=== PATIENT | male | born 1980 | race Caucasian/White ===

== ENCOUNTER 2019-04-14 16:55 | Emergency (ER) | payer MEDICARE ==
--- NOTE | 2019-04-14 17:57 | UC ---
Skin Complaint HPI - HPI Summary HPI Summary: 38 y/o male presents to the urgent care c/o tick bite 2 weeks ago and now he has developed SALAMANCA, joint pains, fatigue and general malaise w/ chills at times for the past 3 days. Pt reports he has had tick bite is the past, but has never gotten the prophylactic treatment, but never felt like this. Pt has not seen any rash, but he is concerned about Lyme disease and requests Serology and full treatment. He has Hx of Migraine SALAMANCA. Pt denies fever, but has felt chills, denies SOB, chest pain, abdominal pain, N/V/D, dizziness, visual changes, - History of Current Complaint Chief Complaint: UCGeneralIllness Time Seen by Provider: 04/14/19 17:56 Stated Complaint: TICK BITE Hx Obtained From: Patient Onset/Duration: Sudden Onset, Lasting Weeks - 2 weeks ago tick bite, Worse Since - 3 days w/ joint pain, SALAMANCA, chills fatigue Skin Exposure Onset/Duration: Weeks Ago - 2 weeks ago Timing: Constant Onset Severity: Mild Current Severity: Moderate Pain Intensity: 7 Pain Scale Used: 0-10 Numeric Location: Generalized - joint pains, fatigue Aggravating Factor(s): Nothing Alleviating Factor(s): OTC Meds Associated Signs & Symptoms: Positive: Weakness, Chills Related History: Possible Reaction to: Insect - Allergy/Home Medications Allergies/Adverse Reactions: Allergies Allergy/AdvReac Type Severity Reaction Status Date / Time No Known Allergies Allergy Verified 04/14/19 17:38 PMH/Surg Hx/FS Hx/Imm Hx Previously Healthy: Yes - Pt denies PMHX - Surgical History Surgical History: Yes Surgery Procedure, Year, and Place: arm fracture repair - Family History Known Family History: Positive: Hypertension Negative: Blood Disorder - Social History Occupation: Employed Full-time Lives: With Family Alcohol Use: Occasionally Substance Use Type: Marijuana Smoking Status (MU): Never Smoked Tobacco - Immunization History Most Recent Influenza Vaccination: Unknown Most Recent Tetanus Shot: 08/08/16 Review of Systems All Other Systems Reviewed And Are Negative: Yes Constitutional: Positive: Chills, Fatigue Skin: Positive: Negative Eyes: Positive: Negative ENT: Positive: Negative Respiratory: Positive: Negative Cardiovascular: Positive: Negative Gastrointestinal: Positive: Negative Genitourinary: Positive: Negative Motor: Positive: Negative Neurovascular: Positive: Negative Musculoskeletal: Positive: Arthralgia Neurological: Positive: Headache Psychological: Positive: Negative Is Patient Immunocompromised?: No Physical Exam - Summary Physical Exam Summary: Vital Signs Reviewed: Yes General: well developed, well nourished male sitting in the examining table w/o any apparent distress. Eyes: Positive: Conjunctiva Clear - PERRLA, EOMI ENT: Positive: Normal ENT inspection, Hearing grossly normal, Pharynx normal, TMs normal Neck: Positive: Supple, Nontender, No Lymphadenopathy Respiratory: Positive: Chest nontender, Lungs clear, Normal breath sounds Cardiovascular: Positive: RRR, No Murmur, Pulses Normal Abdomen Description: Positive: Nontender, No Organomegaly, Soft. Negative: CVA Tenderness (R), CVA Tenderness (L) Bowel Sounds: Positive: Present Musculoskeletal: Positive: Strength Intact, ROM Intact, No Edema Neurological Exam: Normal Psychological Exam: Normal Skin: Positive: rashes - lateral sied of the left lower leg with discrete tick bite with surrounding erythema, non tender to palpation. tick no longer present , no swelling or drainage observed. Triage Information Reviewed: Yes Vital Signs: Initial Vital Signs Temp 98.8 F 04/14/19 17:30 Pulse 87 04/14/19 17:30 Resp 18 04/14/19 17:30 BP 163/110 04/14/19 17:30 Pulse Ox 100 04/14/19 17:30 Course/Dx - Course Course Of Treatment: 38 y/o male presents to the urgent care c/o tick bite 2 weeks ago and now he has developed SALAMANCA, joint pains, fatigue and general malaise w/ chills at times for the past 3 days. Pt reports he has had tick bite is the past, but has never gotten the prophylactic treatment, but never felt like this. Pt has not seen any rash, but he is concerned about Lyme disease and request Serology and full treatment. He has Hx of Migraine SALAMANCA. Pt denies fever, but has felt chills, denies SOB, chest pain, abdominal pain, N/V/D, dizziness, visual changes. Hx obtained. Pt is hemdynamically stable. His BP is very elevated, Taken Manually is160/100. pt is asymptomatic. Lyme serology ordered. Pt will be notified of the results. Pt Rx Doxycycline PO. However strongly advised to f/u with Dr Cortes or PCP for further management if not improvement of symptoms. Pt BP elevated and Pt advised to decrease salt in diet, monitor BP and if it continues to be elevated to f/u with PCP for further management. However, if chest pain, dizziness, visual disturbances, SOB, or severe SALAMANCA develops, Pt was advised to go immediately to the ER for further management. Pt understood and agreed with plan of care.Pt left clinic hemodynamically stable ,A&OX3. - Differential Diagnoses - Skin Complaint Differential Diagnoses: Abscess, Cellulitis, Contact Dermatitis, MRSA, Tick Born Illness - Diagnoses Provider Diagnosis: Elevated BP without diagnosis of hypertension, History of tick-borne disease, Arthralgia Discharge - Sign-Out/Discharge Documenting (check all that apply): Patient Departure - d/c home All imaging exams completed and their final reports reviewed: No Studies - Discharge Plan Condition: Stable Disposition: HOME Prescriptions: DOXYcycline CAP(*) [DOXYcycline 100MG CAP(*)] 100 mg PO BID #28 cap Patient Education Materials: Lyme Disease (ED), Low-Sodium Diet (ED) Referrals: [facility] [Outside] - 3 Days Sophia BORREGO,Ken Mccoy [Medical Doctor] - 1 Week Additional Instructions: 1- Please take full course of antibiotic to avoid resistance. 2- Lyme Serology and blood work still pending. You will be notified of results for further management 3- F/u with DR Cortes or a PCP in 1 week for further management in Lyme Disease 4-Your BP is elevated today. Please take your BP medications and decrease salt in your diet, monitor BP and if it continues to be elevated please f/u with your PCP for further management. If you develop chest pain, dizziness, visual disturbances, SOB, or severe SALAMANCA please go immediately to the ER for further management - Billing Disposition and Condition Condition: STABLE Disposition: Home
[2019-04-14 18:39] VITALS: BP 160/100
--- NOTE | 2019-04-17 18:42 | UC ---
- Progress Note Progress Note: laboratory reports reviewed today: lyme screen(Lyme IgG, IgM): Negative Patient has been started on doxycycline. He has history of tick bites in the past and wanted to know the test results as per note. RN to inform patient that his Lyme testing is negative. But early on, it can be negative. He can continue the antibiotics and repeat the Lyme testing in 2 weeks. He was also advised to follow-up with Dr. Baldwin and he should keep his appointment. Course/Dx - Diagnoses Provider Diagnoses: Elevated BP without diagnosis of hypertension, History of tick-borne disease, Arthralgia Discharge - Sign-Out/Discharge Documenting (check all that apply): Post-Discharge Follow Up All imaging exams completed and their final reports reviewed: No Studies - Discharge Plan Condition: Stable Disposition: HOME Prescriptions: DOXYcycline CAP(*) [DOXYcycline 100MG CAP(*)] 100 mg PO BID #28 cap Patient Education Materials: Lyme Disease (ED), Low-Sodium Diet (ED) Referrals: [facility] [place] [facility] [[facility]] - 3 Days Sophia BORREGO,Ken Mccoy [Medical Doctor] - 1 Week Additional Instructions: 1- Please take full course of antibiotic to avoid resistance. 2- Lyme Serology and blood work still pending. You will be notified of results for further management 3- F/u with DR Baldwin or a PCP in 1 week for further management in Lyme Disease 4-Your BP is elevated today. Please take your BP medications and decrease salt in your diet, monitor BP and if it continues to be elevated please f/u with your PCP for further management. If you develop chest pain, dizziness, visual disturbances, SOB, or severe SALAMANCA please go immediately to the ER for further management - Billing Disposition and Condition Condition: STABLE Disposition: Home
== END 2019-04-14 18:53 | disposition home or self-care (01) ==
LOC: UCEAST 16:55
DX: R03.0 Elevated blood-pressure reading, without diagnosis of hypertension (principal); M25.50 Pain in unspecified joint; R53.83 Other fatigue; R68.83 Chills (without fever); Z82.49 Family history of ischemic heart disease and other diseases of the circulatory system
CPT/HCPCS: 36415; 86618; 99212; G0463